=== PATIENT | female | born 1960 | race Caucasian/White ===

== ENCOUNTER 2018-04-12 05:16 | Day surgery (SDC) | payer OTHER ==
[2018-04-11 11:25] VITALS: BMI 25.0
--- NOTE | 2018-04-12 10:55 | HP ---
Satellite H - Chief Complaint Chief Complaint: left elbow pain - Past Medical History Allergies/Adverse Reactions: Allergies Allergy/AdvReac Type Severity Reaction Status Date / Time codeine Allergy Intermediate Rash Verified 04/12/18 10:47 Penicillins Allergy Intermediate Rash Verified 04/12/18 10:47 Sulfa (Sulfonamide Allergy Intermediate Rash Verified 04/12/18 10:47 Antibiotics) - Current Medications Current Medications: Home Medications Medication Instructions Recorded Atorvastatin Ca [Lipitor] 20 mg PO HS 04/11/18 Metformin HCl [Glucophage] 500 mg PO BID 04/11/18 Oxycodone HCl/Acetaminophen 1 - 2 tab PO Q6H #30 tab MDD 6 04/12/18 [Percocet 5-325 mg Tablet] Satellite Physical Exam - Physical Examination Vital Signs: Vital Signs Period Temp Pulse Resp BP Sys/Almanza Pulse Ox Last 24 Hr 97.4 F 63 18 134/85 99 General Appearance: Well Nourished, Well Developed, Alert & Oriented x3 ENT: Clear Lung: Normal air movement Heart: Regular rate & rhythm Extremities: Other (left elbow- + ttp lateral epi, decr rom, nvi MRI + ecrb tear ) Neurological: Intact, Alert, Oriented Satellite Impression/Plan - Impression/Plan Impression: right elbow lateral epicondylitis, ECRB tear Operative Procedure: right elbow lateral epicondylectomy with ECRB repair Date to be Performed: 04/12/18
[2018-04-12] MEDS ORDERED: ROPIVACAINE HCL 0.5% 30ML VIAL ONE (11:38)
[2018-04-12] MEDS ORDERED: DEXAMETHASONE SOD PHOSPHATE/PF 10 MG/ML SDV ONE (11:38)
[2018-04-12] MEDS ORDERED: MIDAZOLAM HCL 2 MG/2 ML SINGLE DOSE VIAL ONE ×2 (11:58)
[2018-04-12] MEDS ORDERED: SODIUM CHLORIDE 0.9% P/F 10 ML VIAL IJ ONE (12:28)
[2018-04-12] MEDS ORDERED: LIDOCAINE HCL/PF 2% SDV 5ML VIAL ONE (12:28)
[2018-04-12] MEDS ORDERED: DEXAMETHASONE SOD PHOSPHATE 4 MG/1 ML VIAL ONE (12:28)
[2018-04-12] MEDS ORDERED: PROPOFOL 20 ML ONE (12:28)
[2018-04-12] MEDS ORDERED: ceFAZolin SODIUM 1 GM VIAL ONE (12:28)
[2018-04-12] MEDS ORDERED: ePHEDrine SULFATE 50 MG/1 ML AMPULE ONE (12:59)
--- NOTE | 2018-04-12 13:38 | OP ---
Operative Note - Note: Operative Date: 04/12/18 ([facility]) Pre-Operative Diagnosis: left elbow lateral epicondylitis, ECRB tear Operation: left elbow lateral epicondylectomy, ECRB repair Post-Operative Diagnosis: Same as Pre-op Surgeon: Esdras Quiñones Pit Crane Operator: Hansel Lo Anesthesiologist/SOLDERER: Sekou Oviedo Anesthesia: General, Local Specimens Removed: tenosynovium Estimated Blood Loss (mls): 0 (tourniquet) Operative Report Dictated: Yes
[2018-04-12 14:32] VITALS: TEMP 98
--- NOTE | 2018-04-12 14:53 | SPEC ---
DATE OF OPERATION: 04/12/2018 PREOPERATIVE DIAGNOSIS: Left elbow epicondylitis and torn extensor carpi radialis brevis tendon. POSTOPERATIVE DIAGNOSIS: Left elbow epicondylitis and torn extensor carpi radialis brevis tendon. PROCEDURE: Left elbow lateral epicondylectomy and repair of extensor carpi radialis brevis tendon. SURGEON: Rk Back MD [employer]ANT [employer] AUTOMATION MANAGER: SHANITA Verde ANESTHESIA: Sekou Oviedo CRNA, left interscalene block with Riya Richard MD. DRAINS: None. COMPLICATIONS: None. BLOOD LOSS: None. BLOOD GIVEN: None. FLUID REPLACEMENT: Plasmalyte 500 mL. INDICATIONS: This patient is a 57-year-old female with a preoperative diagnosis of severe recurrent left elbow lateral epicondylitis and a torn ECRB tendon. After understanding the potential risks, complications, alternatives, and benefits to surgical versus nonsurgical treatment, the patient elected to undergo this procedure. PROCEDURE: The patient was brought into the operating room, peripheral IV placed, IV sedation given, a right interscalene block performed, LMA anesthesia induced. Patient was given 1 gram of IV Ancef. A tourniquet applied to the arm. The upper extremity was prepped and draped in a sterile fashion, elevated and exsanguinated with an Esmarch bandage and tourniquet inflated to 250 mg of mercury. The entire case was done under 3.8 loupe magnification. A No. 15 scalpel blade was utilized to cut into the skin in a curvilinear fashion over the lateral epicondyle. Subcutaneous hemostasis was achieved with the bipolar cautery. Metzenbaum scissors were used to cut through the superficial fascia, exposing the lateral epicondyle, the origin of the ECRB. Under direct visualization three longitudinal slits were made within the periosteum of the lateral epicondyle as well as along the fibers of the ECRB with a No. 15 scalpel blade. First starting in the most anterior slit, using a combination of a fresh No. 15 scalpel blade and a rongeur, I was able to identify and removed chronic inflammatory degenerating tissue. This slightly grayish yellowish tissue was passed off the field with specimen, soft tissue lateral epicondyle right elbow. Next a curet was used to scrape the tendon in the area of the abnormalities as well as mildly decorticate the lateral epicondyle. The area was copiously irrigated and washed out, inspected. All abnormal tissue was seen to be removed from this area and therefore a 1.1 mm drill bit was used to drill multiple holes within the lateral epicondyle. The same sequence of events was carried out in the middle slit and the posterior most slit combining all the tissue specimen. Multiple drill holes were again drilled in the lateral epicondyle after mild decortication with a curet and rongeur. The area was copiously irrigated and washed out, additional inspection performed. I didnt see any other abnormal tissue and therefore closure was begun. TOTAL TOURNIQUET TIME: 38 minutes. COMPLICATIONS: No complications during the case. SPECIMENS: Inflammatory tissue, left elbow. RK BACK M.D. [id number]
[2018-04-12 15:25] VITALS: BP 118/51; PULSE 71
--- NOTE | 2018-04-14 16:39 | PATH ---
Surgical Pathology Report Patient Name: SOFIA YOUNG [facility]. Rec. #: [id number] /Age/Gender: 1960 (Age: 57) / F Account: [id number] Location: [facility] Taken: 04/12/2018 Received: 04/13/2018 Reported: 04/14/2018 Physicians: Esdras Quiñones M.D. Specimen(s) Received LEFT ELBOW LATERAL EPICONDYLE Clinical History Left elbow lateral epicondylitis Final Diagnosis ELBOW, LEFT, LATERAL EPICONDYLECTOMY: FRAGMENTS OF CARTILAGE, DENSE FIBROCONNECTIVE TISSUE, SKELETAL MUSCLE, AND BONE. . Electronically Signed Saranya Mock M.D. Gross Description Received in formalin labeled "left elbow lateral epicondylectomy" is a 1.5 x 1.3 x 0.1 cm aggregate of langford fibrous tissue fragments. The specimen is entirely submitted in one cassette. /04/13/201804/13/2018
== END 2018-04-12 15:58 | disposition home or self-care (01) ==
LOC: JASU-SURG 05:16
PROVIDERS: ATTEND Orthopaedic Surgery
PROC: 0PBG0ZZ Excision of Left Humeral Shaft, Open Approach (ICD-10-PCS; 2018-04-12)
PROC: 0PBG0ZZ Excision of Left Humeral Shaft, Open Approach (ICD-10-PCS; principal; 2018-04-12 12:00)
DX: M77.12 Lateral epicondylitis, left elbow (principal); S46.812A Strain of other muscles, fascia and tendons at shoulder and upper arm level, left arm, initial encounter; X58.XXXA Exposure to other specified factors, initial encounter; Y93.9 Activity, unspecified
CPT/HCPCS: 82962; 88304-TC; 94760